=== PATIENT | male | born 1945 | race Caucasian/White ===

== ENCOUNTER → 2017-12-20 | Outpatient (CLI) | payer MEDICARE ==
--- NOTE | 2017-12-20 13:48 | Diagnostic Imaging Report ---
PROCEDURE:X-RAY LEFT SHOULDER, COMPLETE COMPARISON:No other priors INDICATIONS:Left SHOULDER PAIN FINDINGS: There are no fractures, dislocations, lytic or blastic lesions. The bones are well-mineralized. There is narrowing of the acromioclavicular joint with a small osteophyte arising from the inferior aspect of the distal clavicle. No undersurface spurring of the acromion. No glenohumeral joint narrowing or osteophytosis. There is mild sclerosis and tufting of the lateral humeral head at the greater tuberosity. Visualized portion of the chest is unremarkable. The soft-tissues are unremarkable. CONCLUSION: Degenerative changes of the a.c. joint. Sclerosis of the lateral humeral head is suggestive of rotator cuff arthropathy. Dictated by: Alessia Menendez M.D. on 12/20/2017 at 13:50 Electronically approved by: Alessia Menendez M.D. on 12/20/2017 at 13:50
== END ==
LOC: RAD 13:21
PROVIDERS: ATTEND Family Medicine
DX: M25.512 Pain in left shoulder (principal)

== ENCOUNTER → 2019-04-06 | Outpatient (CLI) | payer MEDICARE ==
[~2019-04-06] MED LIST: IOPAMIDOL 370 MG/ML 200 ML INFUS..BTL INJ ONE; METOPROLOL TARTRATE INJ 1 MG/ML VIAL ONE; NITROGLYCERIN 0.4 MG SUBL ONE; SODIUM CHLORIDE 0.9% 100 ML 100 ML ONE; SODIUM CHLORIDE 0.9% 250ML 250 ML ONE; SODIUM CHLORIDE 0.9% 500ML 500 ML ONE
[2019-04-06 10:53] LABS: CREATININE, SERUM 1.43 mg/dL (0.72-1.25)
--- NOTE | 2019-04-06 14:53 | Diagnostic Imaging Report ---
Examination: CT CERVICAL SPINE WO CONTRAST HISTORY:Neck pain that radiates down the left arm. COMPARISON:None. TECHNIQUE: Multidetector helical axial images were obtained without contrast from the foramen magnum to T1. Coronal and sagittal reformatted images were done. Bone and soft tissue windows were evaluated. Dose modulation, iterative reconstruction, and/or weight based adjustment of the mA/kV was utilized to reduce the radiation dose to as low as reasonably achievable. FINDINGS: Alignment:Normal alignment with straightening of normal lordosis.. Vertebrae: Normal height and density. No acute fracture or infection. In the right superior articulating facet of C5, there is a homogeneously hypodense 5.6 mm rounded lesion, most probably representing a bone cyst. Disc space heights: Mildly narrowed at C5-C6 and C6-C7.. Caliber of spinal canal: Developmentally normal. Posterior fossa and craniocervical junction: Foramen magnum patent. No Chiari 1 malformation.. Soft tissues: No abnormality.. Individual intervertebral disc levels: C1-C2: No abnormality.. C2-C3: Severe left facet and moderate uncovertebral arthropathy results in moderate left neural foraminal narrowing. No right foraminal or canal stenosis. No degenerative disc herniation or bulge. C3-C4: Moderate to severe bilateral uncovertebral and facet arthropathy result in moderate bilateral neural foraminal narrowing. No canal stenosis. Small central disc protrusion. C4-C5: Mild bilateral uncovertebral and moderate left facet arthropathy results in mild right neural foraminal narrowing. No left foraminal or canal stenosis. No disc herniation or bulge. C5-C6: Diffuse disc osteophyte complex and bilateral uncovertebral and facet arthropathy result in moderate right and mild left neural foraminal narrowing. No canal stenosis. C6-C7: Asymmetric to the left disc osteophyte complex and bilateral uncovertebral arthropathy result in mild left neural foraminal narrowing. No right foraminal or canal stenosis. C7-T1: No abnormality. Visualized lung apices: No abnormalities. IMPRESSION: 1. Degenerative change from C2-C3 to C6-C7 with moderate left neural foraminal narrowing at C2-C3, moderate bilateral neural foraminal narrowing at C3-C4 and moderate right foraminal narrowing at C5-C6. 2. No canal stenosis. Signed by: Dr. Cira Odell M.D. on 04/06/2019 2:49 PM
--- NOTE | 2019-04-07 10:32 | Diagnostic Imaging Report ---
EXAM: CALCIUM SCORE AND CORONARY CTA INDICATION: ^[id number] ^1300 ^CHEST PAIN COMPARISON: None. TECHNIQUE: Multi-detector CT technology was employed ([address] 750 HD 64 MDCT [employer]). Minimal slice thickness was performed following the intravenous administration of contrast material. The patient was premedicated with 0.4 mg sublingual nitroglycerin for coronary dilation. No need to administer beta blockers due to low heart rate. IV CONTRAST: 150 mL of Omnipaque 350 ORAL CONTRAST: None COMPLICATIONS: None RADIATION DOSE: Total DLP: 1915 mGy*cm Estimated effective dose: (DLP x 0.015 x size factor) mSv CTDIvol has been reviewed. It is below the limits set by the Radiation Protocol Committee (RPC). For optimization of anatomic evaluation, multiplanar reconstruction, maximum intensity projections, and advanced 3-D off-line postprocessing were performed on a dedicated stand-alone workstation under the direct supervision of the interpreting physician. QUALITY: Non-diagnostic, Fair, Good, Excellent FINDINGS: CALCIUM SCORE: The observed Agatston Calcium Score of 108 is at percentile between 25 and 50% for subjects of the same age and gender who are free of clinical cardiovascular disease and treated diabetes. The Agatston score for each vessel is as follows: LM: 0 LAD: 31.0 LCx: 4.77 RCA: 72.3 DISTRIBUTION OF THE CALCIFIED PLAQUES: Mild to moderate scattered calcified plaques throughout the coronary arteries, worse in the proximal RCA. CORONARY ANATOMY: There is normal origin of the coronary arteries. Left Main Coronary Artery: The left main is short in length but normal sized vessel that bifurcates into the LAD and circumflex. There is no evidence of atherosclerotic changes or stenotic disease. Left Anterior Descending Coronary Artery: The LAD is a normal size vessel that wraps around the apex. It gives rise to 2 acute diagonal branches. Focal mixed plaque in the mid LAD beyond the origin of the first diagonal results in moderate stenosis (50-69%). Left Circumflex Coronary Artery: The LCX is a normal size vessel, which is non-dominant. It gives rise to 2 obtuse marginal branches. There is no evidence of atherosclerotic changes or stenotic disease. Right Coronary Artery: The RCA is a normal size vessel, which is dominant. It gives rise to a conus branch, AV liliya branch, and 2 acute marginal branches. In its distal segment it bifurcates into the PDA and PV branch. Minimal calcified plaque in the proximal and mid segment without significant stenosis. The remaining segments are widely patent without atherosclerotic disease. CARDIAC MORPHOLOGY AND FUNCTION: The right and left atria and ventricles are morphologically normal. There is normal resting global left ventricular systolic function. LVEF: 71%, LV end diastolic volume: 94.3 cc LV end systolic volume: 27 cc LV stroke volume: 57.2 cc LIMITED CHEST: Limited views of the visualized chest show no abnormality within chest wall and mediastinum. No mediastinal lymphadenopathy. Minimal linear scarring in the left lower lobe. The visualized portions of the ascending and descending thoracic aorta are of normal size. Minimal calcifications of the aortic valve. LIMITED ABDOMEN: Limited images of the upper abdomen reveal no abnormalities of the visualized organs. BONES: No acute osseous abnormalities. IMPRESSION: 1. Total Agatston Calcium Score: 108 that corresponds to percentile between 25 and 50%, representing moderate plaque burden. 2. Normal coronary anatomy. 3. Moderate stenosis (50-69%) of the mid LAD due to a mixed plaque. Minimal plaques throughout the proximal and mid RCA. Otherwise, coronary arteries are widely patent without osteoporotic disease. CAD-LAKE: 3 Recommendation: Functional assessment with Nuclear Medicine for evaluation of ischemia. If symptoms persist, also consider Interventional Cardiology consultation. Reference: [email or web address] Signed by: Dr. Pamella Jeong M.D. on 04/07/2019 10:28 AM
== END ==
LOC: CT 09:29
PROVIDERS: ATTEND Internal Medicine Cardiovascular Disease
DX: R07.9 Chest pain, unspecified (principal); M54.2 Cervicalgia
CPT/HCPCS: 36415; 72125; 75574; 82565; 84520; J7040; J7050; Q9967

== ENCOUNTER → 2019-05-11 | Day surgery (SDC) | payer MEDICARE ==
[2019-05-08 11:40] LABS: BASOPHILS # (AUTO) 0.1 (0.0-0.1); BASOPHILS % 0.6 % (0.0-1.0); EOSINOPHILS # (AUTO) 0.3 (0.0-0.4); EOSINOPHILS % 3.8 % (0.0-6.0); HEMATOCRIT 47.3 % (38.2-49.6); HEMOGLOBIN 15.5 g/dL (14.0-18.0); LYMPHOCYTES # (AUTO) 2.2 (1.0-3.2); LYMPHOCYTES % 27.9 % (18.0-39.1); MEAN CORPUSCULAR HEMOGLOBIN 30.5 pg (28-32); MEAN CORPUSCULAR HGB CONC 32.8 g/dL (31-35); MEAN CORPUSCULAR VOLUME 92.9 fL (81-99); MONOCYTES # (AUTO) 0.8 (0.2-0.8); MONOCYTES % 9.7 % (4.4-11.3); NEUTROPHILS # (AUTO) 4.6 (2.1-6.9); NEUTROPHILS % 57.4 % (38.7-80.0); PLATELET COUNT 244 x10e3/uL (140-360); RED BLOOD COUNT 5.09 x10e6/uL (4.3-5.7); RED CELL DISTRIBUTION WIDTH 12.8 % (11.7-14.4)
[2019-05-08 11:57] LABS: INR 0.84
[2019-05-08 12:06] LABS: ALBUMIN 3.6 g/dL (3.5-5.0); ANION GAP 11.5 mmol/L (8-16); CALCIUM 9.9 mg/dL (8.4-10.2); CREATININE, SERUM 1.44 mg/dL (0.72-1.25); POTASSIUM 4.5 mmol/L (3.5-5.1)
--- NOTE | 2019-05-08 13:37 | NUR ---
Dr. Rivers notified of creatinine 1.44 and eGFR 48. No new orders at this time.
[~2019-05-11] VITALS: Ht 170.2 cm; Wt 98.9 kg
[~2019-05-11] MED LIST changes: +ASPIR 8181 MG PO; +FENTANYL CITRATE/PF 100MCG/2 ML INJ ONE; +FLOMAX0.4 MG PO; +HEPARIN SOD/SOD CHLORIDE 2,000 ML ONE; +JANUVIA100 MG PO; +JARDIANCE PO; +LIDOCAINE HCL 2% LOCAL 20 ML VIAL ONE; +LISINOPRIL10 MG PO; +METFORMIN HCL500 MG PO; -METOPROLOL TARTRATE INJ 1 MG/ML VIAL ONE; +MIDAZOLAM HCL 2 MG/2 ML VIAL ONE; -NITROGLYCERIN 0.4 MG SUBL ONE; +PRAVASTATIN SOD20 MG PO; -SODIUM CHLORIDE 0.9% 100 ML 100 ML ONE; +SODIUM CHLORIDE 0.9% 1000ML 1,000 ML ONE; -SODIUM CHLORIDE 0.9% 250ML 250 ML ONE; -SODIUM CHLORIDE 0.9% 500ML 500 ML ONE; +VERAPAMIL HCL 2.5 MG/ML 2 ML VIAL ONE
--- OUTSIDE RECORDS SUMMARY | 2019-05-11 08:02 | XMS REPORT ---
Author Author [facility] Address Unknown Phone Unavailable Care Team Providers Care Electrician Supervisor Substation Name Role Phone Mykel SALOMON Unavailable Unavailable SAUNDERSSALLY Unavailable Unavailable Problems This patient has no known problems. Allergies, Adverse Reactions, Alerts This patient has no known allergies or adverse reactions. Medications This patient has no known medications. Results Test Description Test Time Test Comments Text Results Atomic Results Result Comments CTA CORONARY W or WO CALCIUM 2019-04-06 16:40:00 [place] [address] Patient Name: HARDY CLAYTON MR #: [id number] : 1945 Age/Sex: 74/M Req #: [id number] Adm Physician: Ordered by: BHASKAR SALOMON DO Report #: [id number] Location: CT Room/Bed: Procedure: [id number] CT/CTA CORONARY W or WO CALCIUM Exam Date: 04/06/19 Exam Time: 1300 REPORT STATUS: Signed EXAM: CALCIUM SCORE AND CORONARY CTA I NDICATION: [id number] CHEST PAIN COMPARISON: None. TECHNIQUE: Multi-detector CT technology was employed ([address] 750 HD 64 MDCT [employer]). Minimal slice thickness was performed following the intravenous administration of contrast material. The patient was premedicated with 0.4 mg sublingual nitroglycerin for coronary dilation. No need to administer beta blockers due to low heart rate. IV CONTRAST: 150 mL of Omnipaque 350 ORAL CONTRAST: None COMPLICATIONS: None RADIATION DOSE: Total DLP: 1915 mGy*cm Estimated effective dose: (DLP x 0.015 x size factor) mSv CTDIvol has been reviewed. It is below the limits set by the Radiation Protocol Committee (RPC). For optimization of anatomic evaluation, multiplanar reconstruction, maximum intensity projections, and advanced 3-D off-line postprocessing were performed on a dedicated stand-alone workstation under the direct supervision of the interpreting physician. QUALITY: Non- diagnostic, Fair, Good, Excellent FINDINGS: CALCIUM SCORE: The observed Agatston Calcium Score of 108 is at percentile between 25 and 50% for subjects of the same age and gender who are free of clinical cardiovascular disease and treated diabetes. The Agatston score for each vessel is as follows: LM: 0 LAD: 31.0 LCx: 4.77 RCA: 72.3 DISTRIBUTION OF THE CALCIFIED PLAQUES: Mild to moderate scattered calcified plaques throughout the coronary arteries, worse in the proximal RCA. CORONARY ANATOMY: There is normal origin of the coronary arteries. Left Main Coronary Artery: The left main is short in length but normal sized vessel that bifurcates into the LAD and circumflex. There is no evidence of atherosclerotic changes or stenotic disease. Left Anterior Descending Coronary Artery: The LAD is a normal size vessel that wraps around the apex. It gives rise to 2 acute diagonal branches. Focal mixed plaque in the mid LAD beyond the origin of the first diagonal results in moderate stenosis (50-69%). Left Circumflex Coronary Artery: The LCX is a normal size vessel, which is non-dominant. It gives rise to 2 obtuse marginal branches. There is no evidence of atherosclerotic changes or stenotic disease. Right Coronary Artery: The RCA is a normal size vessel, which is dominant. It gives rise to a conus branch, AV liliya branch, and 2 acute marginal branches. In its distal segment it bifurcates into the PDA and PV branch. Minimal calcified plaque in the proximal and mid segment without significant stenosis. The remaining segments are widely patent without atherosclerotic disease. CARDIAC MORPHOLOGY AND FUNCTION: The right and left atria and ventricles are morphologically normal. There is normal resting global left ventricular systolic function. LVEF: 71%, LV end diastolic volume: 94.3 cc LV end systolic volume: 27 cc LV stroke volume: 57.2 cc LIMITED CHEST: Limited views of the visualized chest show no abnormality within chest wall and mediastinum. No mediastinal lymphadenopathy. Minimal linear scarring in the left lower lobe. The visualized portions of the ascending and descending thoracic aorta are of normal size. Minimal calcifications of the aortic valve. LIMITED ABDOMEN: Limited images of the upper abdomen reveal no abnormalities of the visualized organs. BONES: No acute osseous abnormalities. IMPRESSION: 1. Total Agatston Calcium Score: 108 that corresponds to percentile between 25 and 50%, representing moderate plaque burden. 2. Normal coronary anatomy. 3. Moderate stenosis (50-69%) of the mid LAD due to a mixed plaque. Minimal plaques throughout the proximal and mid RCA. Otherwise, coronary arteries are widely patent without osteoporotic disease. CAD-LAKE: 3 Recommendation: Functional assessment with Nuclear Medicine for evaluation of ischemia. If symptoms persist, also consider Interventional Cardiology consultation. Reference: [email or web address] Signed by: Dr. Yasmeen Gamboa M.D. on 04/07/2019 10:28 AM Dictated By: YASMEEN GAMBOA MD 1028 Transcribed By: ELDER on 04/07/19 1028 COPY TO: BHASKAR SALOMON DO CT CERVICAL SPINE WO 2019-04-06 14:44:00 [place] [address] Patient Name: HARDY CLAYTON MR #: [id number] : 1945 Age/Sex: 74/M Req #: [id number] Adm Physician: Ordered by: BHASKAR SALOMON DO Report #: [id number] Location: CT Room/Bed: Procedure: [id number] CT/CT CERVICAL SPINE WO Exam Date: 04/06/19 Exam Time: 1020 REPORT STATUS: Signed Examination: CT CERVICAL SPINE WO CONTRAST HIS TORY:Neck pain that radiates down the left arm. COMPARISON:None. TECHNIQUE: Multidetector helical axial images were obtained without contrast from the foramen magnum to T1. Coronal and sagittal reformatted images were done. Bone and soft tissue windows were evaluated. Dose modulation, iterative reconstruction, and/or weight based adjustment of the mA/kV was utilized to reduce the radiation dose to as low as reasonably achievable. FINDINGS: Alignment:Normal alignment with straightening of normal lordosis.. Vertebrae: Normal height and density. No acute fracture or infection. In the right superior articulating facet of C5, there is a homogeneously hypodense 5.6 mm rounded lesion, most probably representing a bone cyst. Disc space heights: Mildly narrowed at C5-C6 and C6-C7.. Caliber of spinal canal: Developmentally normal. Posterior fossa and craniocervical junction: Foramen magnum patent. No Chiari 1 malformation.. Soft tissues: No abnormality.. Individual intervertebral disc levels: C1-C2: No abnormality.. C2-C3: Severe left facet and moderate uncovertebral arthropathy results in moderate left neural foraminal narrowing. No right foraminal or canal stenosis. No degenerative disc herniation or bulge. C3-C4: Moderate to severe bilateral uncovertebral and facet arthropathy result in moderate bilateral neural foraminal narrowing. No canal stenosis. Small central disc protrusion. C4-C5: Mild bilateral uncovertebral and moderate left facet arthropathy results in mild right neural foraminal narrowing. No left foraminal or canal stenosis. No disc herniation or bulge. C5-C6: Diffuse disc osteophyte complex and bilateral uncovertebral and facet arthropathy result in moderate right and mild left neural foraminal narrowing. No canal stenosis. C6-C7: Asymmetric to the left disc osteophyte complex and bilateral uncovertebral arthropathy result in mild left neural foraminal narrowing. No right foraminal or canal stenosis. C7-T1: No abnormality. Visualized lung apices: No abnormalities. IMPRESSION: 1. Degenerative change from C2-C3 to C6-C7 with moderate left neural foraminal narrowing at C2-C3, moderate bilateral neural foraminal narrowing at C3-C4 and moderate right foraminal narrowing at C5-C6. 2. No canal stenosis. Signed by: Dr. Cira Odell M.D. on 04/06/2019 2:49 PM Dictated By: CIRA CAI MD 48 Transcribed By: ELDER on 04/06/191448 COPY TO: BHASKAR SALOMON DO SHOULDER LEFT COMPLETE [place] [address] Patient Name: HARDY CLAYTON MR #: [id number] : 1945 Age/Sex: 72/M Req #: [id number] Adm Physician: Ordered by: SALLY SAUNDERS MD Report #: [id number] Location: [facility] Room/Bed: Procedure: [id number] DX/SHOULDER LEFT COMPLETE Exam Date: 12/20/17 Exam Time: 1335 REPORT STATUS: Signed PROCEDURE: X-RAY LEFT SHOULDER, COMPLETE COMPARISON: No other priors INDICATIONS: Left SHOULDER PAIN FINDINGS: There are no fractures, dislocations, lytic or blastic lesions. The bones are well-mineralized. There is narrowing of the acromioclavicular joint with a small osteophyte arising from the inferior aspect of the distal clavicle. No undersurface spurring of the acromion. No glenohumeral joint narrowing or osteophytosis. There is mild sclerosis and tufting of the lateral humeral head at the greater tuberosity. Visualized portion of the chest is unremarkable. The soft-tissues are unremarkable. CONCLUSION: Degenerative changes of the a.c. joint. Sclerosis of the lateral humeral head is suggestive of rotator cuff arthropathy. Dictated by: Bao Menendez M.D. on 12/20/2017 at 13:50 Electronically approved by: Bao Menendez M.D. on 12/20/2017 at 13:50 Dictated By: BAO MENENDEZ MD 1351 Transcribed By: JUAN on 12/20/17 1350 COPY TO: SALLY SAUNDERS MD
[2019-05-11 09:23] VITALS: BP 144/82
--- NOTE | 2019-05-11 11:33 | NUR ---
6019 Bedside report received from [place]. Alert oriented and appropriate, PERRLA, respirations even and unlabored to room air. Pulses x4 Pedal pulses PT/DP X4 Doppler. Cap fill brisk < 3 sec.rt Mynx dc at 1315pm No gross issues pain pallor pressure or dysrhythmia. Skin warm and dry integrity appears D/I. IV 20g to left hand presents healthy w/o s/s of infiltration or complaint. Abdomen soft and supple. pt offered toileting, denies need to urinate or defecate. No personal affects with patient. Family at bedside. Pt and family verbalizes understanding of POC. Currently w/o complaint of pain or need.ds/rn
[2019-05-11 11:45] VITALS: BP 120/71
[2019-05-11 12:00] VITALS: BP 128/68
[2019-05-11 12:15] VITALS: BP 122/77
[2019-05-11 12:30] VITALS: BP 118/77
[2019-05-11 13:15] VITALS: BP 102/72
--- NOTE | 2019-05-11 13:15 | NUR ---
1315Pt meets DC criteria. rt groin assessed for s/s of complication and presence of hematoma. skin warm, dry, no discolor, and pulses present. IV removed from left hand Distal tip appears intact. VS WNL. Pt denies pain, sob, or need at this time. Family at bedside. Review of discharge paperwork and follow up instructions. verbalized understanding. Pt to wheelchair and transported to front of hospital. Transferred to private vehicle under own strength w/o incident with DC paperwork in hand. -ds/rn
--- NOTE | 2019-06-08 17:39 | Operative Report ---
DATE OF PROCEDURE: 05/11/2019 SURGEON: Cory Rivers DO PROCEDURES PERFORMED: 1. Conscious sedation, 26 minutes. 2. Selective coronary angiography x2. 3. Left heart catheterization. PREPROCEDURE DIAGNOSIS: Abnormal stress test. POSTPROCEDURE DIAGNOSIS: Minimal coronary artery disease. ESTIMATED BLOOD LOSS: Less than 10 mL. SPECIMENS REMOVED: None. PROCEDURE IN DETAIL: After informed consent was obtained, the patient was brought to the cardiac catheterization laboratory in a fasting and nonsedated state. His right wrist was prepped and draped in the usual sterile fashion. A 2% lidocaine was infiltrated for local anesthesia. Using a micropuncture needle, the right radial artery was accessed via modified Seldinger technique and a sheath was placed. Next, diagnostic coronary angiography and left heart catheterization was performed using a TIG catheter. The patient tolerated the procedure well with no immediate complications, transferred back to his room in stable condition. PROCEDURAL FINDINGS: 1. Left main coronary artery is patent. 2. Left anterior descending coronary artery has mid 20% stenosis. 3. Left circumflex coronary artery provides 3 obtuse marginal vessels with no significant disease. 4. Right coronary artery is a dominant vessel and provides posterior descending coronary artery with no significant disease. 5. Left ventricular end-diastolic pressure is 10 with no aortic valve gradient present upon pullback. IMPRESSION: Minimal nonobstructive coronary artery disease. RECOMMENDATIONS: Medical management. Cory Rivers DO BM/MODL /[id number]
== END | disposition home or self-care (01) ==
LOC: CATH LAB 07:59
PROVIDERS: ATTEND Internal Medicine Cardiovascular Disease
DX: I25.118 Atherosclerotic heart disease of native coronary artery with other forms of angina pectoris (principal); R07.2 Precordial pain; Z01.812 Encounter for preprocedural laboratory examination; I10 Essential (primary) hypertension; M19.90 Unspecified osteoarthritis, unspecified site; E11.9 Type 2 diabetes mellitus without complications; E78.5 Hyperlipidemia, unspecified
CPT/HCPCS: 36415; 80053; 85025; 85610; 93458; C1760; C1769; C1887; J2001; J2250; J3010; J7030; Q9967

== ENCOUNTER 2022-03-29 10:21 | Emergency (ER) | payer MEDICARE ==
[~2022-03-29] VITALS: Ht 170.2 cm; Wt 98.9 kg
[~2022-03-29 10:21] MED LIST changes: -FENTANYL CITRATE/PF 100MCG/2 ML INJ ONE; -HEPARIN SOD/SOD CHLORIDE 2,000 ML ONE; -IOPAMIDOL 370 MG/ML 200 ML INFUS..BTL INJ ONE; -LIDOCAINE HCL 2% LOCAL 20 ML VIAL ONE; -MIDAZOLAM HCL 2 MG/2 ML VIAL ONE; -SODIUM CHLORIDE 0.9% 1000ML 1,000 ML ONE; -VERAPAMIL HCL 2.5 MG/ML 2 ML VIAL ONE
[2022-03-29] MEDS ORDERED: BEBTELOVIMAB 175 MG INJ IV ONE (11:15)
== END 2022-03-29 11:25 | disposition home or self-care (01) ==
LOC: ER 10:39
DX: R05.9 Cough, unspecified (principal); U07.1 COVID-19; I10 Essential (primary) hypertension; E11.9 Type 2 diabetes mellitus without complications; E78.5 Hyperlipidemia, unspecified; Z85.828 Personal history of other malignant neoplasm of skin
CPT/HCPCS: 99283